=== PATIENT | male | born 1970 | race Caucasian/White ===

== ENCOUNTER 2022-02-09 12:09 | Emergency (ER) | payer MEDICAID ==
[2022-02-09] MEDS ORDERED: Dicyclomine 20 MG/2 ML SDV IM ONE (12:31)
[2022-02-09 13:01] LABS: ANION GAP 14.6 mmol/L (5-15); CHLORIDE,CL 104 mmol/L (98-107); ESTIMATED GFR 80 mL/min (>=60); SODIUM,NA 138 mmol/L (136-145)
[2022-02-09] MEDS ORDERED: Ketorolac 30 MG/ML SDV IM ONE (13:42)
[2022-02-09] MEDS ORDERED: Iopamidol 612 MG/ML 100 ML Bottle IVPUSH ONE (14:33)
== END 2022-02-09 15:56 | disposition home or self-care (01) ==
LOC: VM.ED 12:09
DX: K51.30 Ulcerative (chronic) rectosigmoiditis without complications (principal); F17.210 Nicotine dependence, cigarettes, uncomplicated
CPT/HCPCS: 36415; 74177; 80048; 81001; 85025; 96372; 99284; J0500; J1885; Q9967